=== PATIENT | male | born 1980 | race Caucasian/White ===

== ENCOUNTER 2016-05-31 07:45 | Emergency (ER) | payer BC ==
--- NOTE | 2016-06-06 21:34 | ER ---
ADMIT: 05/31/2016 RM/LOC: ER [facility] MR#: [id number] [place], [place] [id number] VIGNESH BLANCO [address] [address] Emergency Room Report SEX: M AGE: 36 : 1980 DATE: 05/31/2016 A 36-year-old gentleman, comes to the Emergency Department with ear fullness in the left ear times the last 1 day. He had been digging at his ear with his girlfriend or significant other's hair clip trying to get the wax out, now comes in stating that, "he is having difficulty hearing from the ear and feels full." See T-sheet for history and physical. The patient has been diagnosed with otitis externa. Given prescription for Cipro otic. Instructed to quit digging at his ear and when he showers to tilt his head while the water to run in his ear. He was told to follow up in 3 or 4 days if not better. Leandro Santoro MD/ josephine JOB #: [id number] CC: Leandro Santoro MD, Attending Physician Bernice Hanna MD, Family Physician
== END 2016-05-31 08:15 | disposition home or self-care (01) ==
LOC: ER 07:45
DX: H60.92 Unspecified otitis externa, left ear (principal); Z79.899 Other long term (current) drug therapy